=== PATIENT | female | born 1960 | race Asian ===

== ENCOUNTER 2018-04-14 07:33 | Day surgery (SDC) | payer MEDICARE, MEDICAID ==
[2018-04-14] VITALS (9 sets, daily range): BP systolic 121–156; BP diastolic 44–86
[~2018-04-14] VITALS: Ht 154.9 cm; Wt 65.2 kg
[2018-04-14] MEDS ORDERED: sod bicarbonate 150mEq in D5W 1,150 ML IV ONE (08:05)
[2018-04-14] MEDS ORDERED: diphenhydrAMINE 25mg capsule PO PRN (08:05)
[2018-04-14] MEDS ORDERED: normal saline 1000ml 1,000 ML IV SCH (08:05)
[2018-04-14] MEDS ORDERED: FURO80TA3 PO (08:11)
[2018-04-14] MEDS ORDERED: HYDR-4069 PO (08:11)
[2018-04-14] MEDS ORDERED: ASPI81TA52 PO (08:11)
[2018-04-14] MEDS ORDERED: CINA30TA PO (08:11)
[2018-04-14] MEDS ORDERED: SEVE800T8 PO (08:11)
[2018-04-14] MEDS ORDERED: FOLI0.8T7 PO (08:11)
[2018-04-14] MEDS ORDERED: FOLI1TAB16 PO (08:11)
[2018-04-14] MEDS ORDERED: LOSA25TA96 PO (08:11)
[2018-04-14] MEDS ORDERED: fentaNYL/PF 50MCG/1 ML 2ML syringe ONE (08:52)
[2018-04-14] MEDS ORDERED: LIDOcaine 1% (10mg/ml)w/preservative injection 20ml MDV ONE (08:52)
[2018-04-14] MEDS ORDERED: midazolam 2 mg/2 ml injection ONE (08:52)
[2018-04-14] MEDS ORDERED: iohexol 350MG/ML 100ml bottle IV ONE (08:52)
[2018-04-14] MEDS ORDERED: iohexol 350 MG/ML 50ML vial IV ONE (08:52)
[2018-04-14 09:37] LABS: BASOPHILS % (AUTO) 0.5 % (0-1); EOSINOPHILS # (AUTO) 0.2 X10'3 (0-0.9); EOSINOPHILS % (AUTO) 3.1 % (0-6); HEMOGLOBIN 10.1 g/dl (12.0-16.0); LYMPHOCYTES # (AUTO) 1.2 X10'3 (1.1-4.8); LYMPHOCYTES % (AUTO) 20.3 % (21-51); MEAN CORPUSCULAR HEMOGLOBIN 31.3 PG (27.0-31.0); MEAN CORPUSCULAR HGB CONC 33.7 % (33.0-36.5); MEAN CORPUSCULAR VOLUME 92.9 FL (78-98); MEAN PLATELET VOLUME 7.6 FL (7.4-10.4); MONOCYTES # (AUTO) 0.3 X10'3 (0-0.9); MONOCYTES % (AUTO) 5.6 % (2-12); NEUTROPHILS # (AUTO) 4.3 X10'3 (1.8-7.7); NEUTROPHILS % (AUTO) 70.5 % (42-75); PLATELET COUNT 113 X10'3 (140-440); RED BLOOD COUNT 3.22 X10'6 (4.20-5.60); RED CELL DISTRIBUTION WIDTH 16.7 % (11.5-14.5); WHITE BLOOD COUNT 6.1 X10'3 (4.5-11.0)
[2018-04-14 09:46] LABS: ALBUMIN 3.8 G/DL (3.4-5.0); ANION GAP 8 (8-16); BLOOD UREA NITROGEN 66 MG/DL (7-18); BUN/CREATININE RATIO 7.7 (6.6-38.0); CALCIUM 8.4 MG/DL (8.5-10.1); CHLORIDE 98 MMOL/L (99-107); CREATININE 8.61 MG/DL (0.40-0.90); GLUCOSE 98 MG/DL (70-104); MAGNESIUM 2.7 MG/DL (1.5-2.4); SODIUM 137 MMOL/L (135-145); TOTAL CARBON DIOXIDE 30.7 MMOL/L (24-32); eGFR 5 ML/MIN
[2018-04-14 09:52] LABS: POTASSIUM 6.6 MMOL/L (3.5-5.1)
[2018-04-14 09:53] LABS: INR 1.1 INR; PROTHROMBIN TIME 10.7 SECONDS (9.0-12.0)
[2018-04-14] MEDS ORDERED: dextrose 50%-water 50ml dispensing syringe IV ONE (10:32)
== END 2018-04-14 13:25 | disposition home or self-care (01) ==
LOC: SSTAY O 07:33
PROVIDERS: ATTEND Internal Medicine Cardiovascular Disease
DX: I25.10 Atherosclerotic heart disease of native coronary artery without angina pectoris (principal); I27.20 Pulmonary hypertension, unspecified; I12.0 Hypertensive chronic kidney disease with stage 5 chronic kidney disease or end stage renal disease; E11.22 Type 2 diabetes mellitus with diabetic chronic kidney disease; N18.6 End stage renal disease; G47.30 Sleep apnea, unspecified; Z99.2 Dependence on renal dialysis; I08.1 Rheumatic disorders of both mitral and tricuspid valves; I45.81 Long QT syndrome; G47.33 Obstructive sleep apnea (adult) (pediatric); Z79.82 Long term (current) use of aspirin; Z79.899 Other long term (current) drug therapy; Z98.890 Other specified postprocedural states
CPT/HCPCS: 36415; 80048; 82948; 83735; 85025; 85610; 93005; 93460; 99152; 99153; A6257; C1760; J1644; J2001; J2250; J3010; Q0163; Q9967; A4620; C1769; C1894

== ENCOUNTER 2018-04-28 07:30 | Day surgery (SDC) | payer MEDICARE, MEDICAID ==
[2018-04-28] VITALS (12 sets, daily range): BP systolic 119–192; BP diastolic 56–77
[~2018-04-28] VITALS: Ht 121.9 cm; Wt 63.6 kg
[~2018-04-28 07:30] MED LIST: ASPI81TA52 PO; CINA30TA PO; FOLI0.8T7 PO; FOLI1TAB16 PO; FURO80TA3 PO; HYDR-4069 PO; LOSA25TA96 PO; SEVE800T8 PO
[2018-04-28] MEDS ORDERED: normal saline 1000ml 1,000 ML IV SCH ×2 (08:00→08:05)
[2018-04-28] MEDS ORDERED: fentaNYL/PF 50MCG/1 ML 2ML syringe IV ONE (08:00)
[2018-04-28] MEDS ORDERED: MIDAZolam 5mg/ml 2ml vial IV ONE (08:00)
[2018-04-28 09:03] LABS: BASOPHILS % (AUTO) 0.5 % (0-1); EOSINOPHILS # (AUTO) 0.2 X10'3 (0-0.9); EOSINOPHILS % (AUTO) 4.4 % (0-6); HEMATOCRIT 35.5 % (35.0-45.0); LYMPHOCYTES # (AUTO) 1.2 X10'3 (1.1-4.8); LYMPHOCYTES % (AUTO) 26.8 % (21-51); MEAN CORPUSCULAR HEMOGLOBIN 31.8 PG (27.0-31.0); MEAN CORPUSCULAR HGB CONC 33.7 g/dL (33.0-36.5); MEAN CORPUSCULAR VOLUME 94.3 FL (78-98); MEAN PLATELET VOLUME 7.4 FL (7.4-10.4); MONOCYTES # (AUTO) 0.2 X10'3 (0-0.9); MONOCYTES % (AUTO) 4.9 % (2-12); NEUTROPHILS # (AUTO) 2.9 X10'3 (1.8-7.7); NEUTROPHILS % (AUTO) 63.4 % (42-75); PLATELET COUNT 166 X10'3 (140-440); RED BLOOD COUNT 3.77 X10'6 (4.20-5.60); RED CELL DISTRIBUTION WIDTH 17.6 % (11.5-14.5); WHITE BLOOD COUNT 4.6 X10'3 (4.5-11.0)
[2018-04-28 09:12] LABS: ALBUMIN 4.3 G/DL (3.4-5.0); ANION GAP 12 (8-16); BLOOD UREA NITROGEN 75 MG/DL (7-18); BUN/CREATININE RATIO 7.7 (6.6-38.0); CHLORIDE 93 MMOL/L (99-107); GLUCOSE 105 MG/DL (70-104); MAGNESIUM 2.8 MG/DL (1.5-2.4); SODIUM 137 MMOL/L (135-145); TOTAL CARBON DIOXIDE 31.8 MMOL/L (24-32); eGFR 4 ML/MIN
[2018-04-28 09:13] LABS: POTASSIUM 5.2 MMOL/L (3.5-5.1)
[2018-04-28 09:20] LABS: PROTHROMBIN TIME 10.6 SECONDS (9.0-12.0)
== END 2018-04-28 10:50 | disposition home or self-care (01) ==
LOC: SSTAY O 07:30 → EDSTATUS 09:00 → SSTAY O 10:50
PROVIDERS: ATTEND Internal Medicine Cardiovascular Disease
DX: I08.1 Rheumatic disorders of both mitral and tricuspid valves (principal); I12.0 Hypertensive chronic kidney disease with stage 5 chronic kidney disease or end stage renal disease; E11.22 Type 2 diabetes mellitus with diabetic chronic kidney disease; N18.6 End stage renal disease; G47.33 Obstructive sleep apnea (adult) (pediatric); I27.20 Pulmonary hypertension, unspecified; Z99.2 Dependence on renal dialysis; Z79.82 Long term (current) use of aspirin; Z79.899 Other long term (current) drug therapy; Z98.890 Other specified postprocedural states
CPT/HCPCS: 36415; 80048; 83735; 85025; 85610; 93312; 99152; 99153; J2250; J3010; J7030

== ENCOUNTER 2018-05-19 12:24 | Emergency (ER) | payer MEDICARE, MEDICAID ==
[~2018-05-19] VITALS: Ht 152.4 cm; Wt 63.0 kg
[2018-05-19] MEDS ORDERED: aspirin 81mg tab.chew PO ONE (14:10)
[2018-05-19 14:49] LABS: BASOPHILS % (AUTO) 0.6 % (0-1); EOSINOPHILS # (AUTO) 0.1 X10'3 (0-0.9); EOSINOPHILS % (AUTO) 3.1 % (0-6); HEMOGLOBIN 12.1 g/dl (12.0-16.0); LYMPHOCYTES # (AUTO) 1.3 X10'3 (1.1-4.8); LYMPHOCYTES % (AUTO) 27.6 % (21-51); MEAN CORPUSCULAR HEMOGLOBIN 31.8 PG (27.0-31.0); MEAN CORPUSCULAR HGB CONC 33.7 g/dL (33.0-36.5); MEAN CORPUSCULAR VOLUME 94.4 FL (78-98); MEAN PLATELET VOLUME 7.9 FL (7.4-10.4); MONOCYTES # (AUTO) 0.3 X10'3 (0-0.9); NEUTROPHILS # (AUTO) 2.8 X10'3 (1.8-7.7); NEUTROPHILS % (AUTO) 61.7 % (42-75); PLATELET COUNT 146 X10'3 (140-440); RED BLOOD COUNT 3.81 X10'6 (4.20-5.60); RED CELL DISTRIBUTION WIDTH 16.2 % (11.5-14.5); WHITE BLOOD COUNT 4.5 X10'3 (4.5-11.0)
[2018-05-19 15:02] LABS: ALANINE AMINOTRANSFERASE 11 U/L (12-78); ALBUMIN 4.3 G/DL (3.4-5.0); ALKALINE PHOSPHATASE 172 IU/L (46-116); ANION GAP 8 (8-16); ASPARTATE AMINO TRANSFERASE 19 U/L (10-37); BILIRUBIN,TOTAL 0.7 MG/DL (0.1-1.0); BLOOD UREA NITROGEN 25 MG/DL (7-18); BUN/CREATININE RATIO 5.7 (6.6-38.0); CALCIUM 8.9 MG/DL (8.5-10.1); CHLORIDE 98 MMOL/L (99-107); CREATININE 4.36 MG/DL (0.40-0.90); GLUCOSE 158 MG/DL (70-104); POTASSIUM 4.2 MMOL/L (3.5-5.1); SODIUM 140 MMOL/L (135-145); TOTAL CARBON DIOXIDE 34.5 MMOL/L (24-32); TOTAL PROTEIN 8.6 G/DL (6.4-8.2); eGFR 10 ML/MIN
[2018-05-19 15:10] LABS: MAGNESIUM 2.4 MG/DL (1.5-2.4)
[2018-05-19 17:47] VITALS: BP 182/68
== END 2018-05-19 18:01 | disposition home or self-care (01) ==
LOC: ER 12:25
DX: R00.1 Bradycardia, unspecified (principal); N18.9 Chronic kidney disease, unspecified; Z99.2 Dependence on renal dialysis; Z79.82 Long term (current) use of aspirin; Z79.899 Other long term (current) drug therapy
CPT/HCPCS: 36415; 71045; 80053; 82948; 83735; 83880; 84443; 84484; 85025; 93005; 99285

== ENCOUNTER 2019-01-03 06:54 | Day surgery (SDC) | payer MEDICARE, MEDICAID ==
[~2019-01-03] VITALS: Ht 154.9 cm; Wt 63.6 kg
[2019-01-03] VITALS (8 sets, daily range): BP systolic 135–156; BP diastolic 53–78
[2019-01-03] MEDS ORDERED: normal saline 1000ml 1,000 ML IV PRN (07:25)
[2019-01-03] MEDS ORDERED: LOSA25TA96 PO (07:36)
[2019-01-03 07:52] LABS: BASOPHILS % (AUTO) 0.7 % (0-1); EOSINOPHILS # (AUTO) 0.3 X10'3 (0-0.9); EOSINOPHILS % (AUTO) 5.3 % (0-6); HEMATOCRIT 29.5 % (35.0-45.0); HEMOGLOBIN 9.9 g/dl (12.0-16.0); LYMPHOCYTES # (AUTO) 1.1 X10'3 (1.1-4.8); LYMPHOCYTES % (AUTO) 21.2 % (21-51); MEAN CORPUSCULAR HEMOGLOBIN 32.3 PG (27.0-31.0); MEAN CORPUSCULAR HGB CONC 33.5 g/dL (33.0-36.5); MEAN CORPUSCULAR VOLUME 96.5 FL (78-98); MEAN PLATELET VOLUME 7.9 FL (7.4-10.4); MONOCYTES # (AUTO) 0.3 X10'3 (0-0.9); MONOCYTES % (AUTO) 6.4 % (2-12); NEUTROPHILS # (AUTO) 3.5 X10'3 (1.8-7.7); NEUTROPHILS % (AUTO) 66.4 % (42-75); PLATELET COUNT 132 X10'3 (140-440); RED BLOOD COUNT 3.06 X10'6 (4.20-5.60); RED CELL DISTRIBUTION WIDTH 15.8 % (11.5-14.5); WHITE BLOOD COUNT 5.2 X10'3 (4.5-11.0)
[2019-01-03 08:02] LABS: ALBUMIN 4.3 G/DL (3.4-5.0); ANION GAP 14 (8-16); BLOOD UREA NITROGEN 60 MG/DL (7-18); BUN/CREATININE RATIO 7.8 (6.6-38.0); CALCIUM 10.2 MG/DL (8.5-10.1); CHLORIDE 104 MMOL/L (99-107); CREATININE 7.72 MG/DL (0.40-0.90); GLUCOSE 93 MG/DL (70-104); POTASSIUM 5.3 MMOL/L (3.5-5.1); SODIUM 143 MMOL/L (135-145); TOTAL CARBON DIOXIDE 25.4 MMOL/L (24-32); eGFR 5 ML/MIN
[2019-01-03] MEDS ORDERED: midazolam 2 mg/2 ml injection IV PRN (08:15)
[2019-01-03] MEDS ORDERED: LIDOcaine 1%/PF 5ML 10 MG/ML VIAL SQ ONE (08:15)
[2019-01-03] MEDS ORDERED: fentaNYL/PF 50MCG/1 ML 2ML syringe IV PRN (08:15)
[2019-01-03] MEDS ORDERED: midazolam 2 mg/2 ml injection ONE ×2 (08:26→08:57)
[2019-01-03] MEDS ORDERED: heparin 1,000 UNITS/NS 500ml 500 ML ONE (08:26)
[2019-01-03] MEDS ORDERED: fentaNYL/PF 50MCG/1 ML 2ML syringe ONE ×2 (08:26→08:58)
[2019-01-03] MEDS ORDERED: LIDOcaine 1%/PF 5ML 10 MG/ML VIAL ONE (08:27)
[2019-01-03] MEDS ORDERED: iohexol 300mg/ml 100ml inj. ONE ×2 (08:27→08:41)
== END 2019-01-03 11:35 | disposition home or self-care (01) ==
LOC: SSTAY O 06:54
PROVIDERS: ATTEND Radiology Diagnostic Radiology
DX: T82.858A Stenosis of other vascular prosthetic devices, implants and grafts, initial encounter (principal); E11.22 Type 2 diabetes mellitus with diabetic chronic kidney disease; I12.0 Hypertensive chronic kidney disease with stage 5 chronic kidney disease or end stage renal disease; N18.6 End stage renal disease; Z79.899 Other long term (current) drug therapy; Y83.2 Surgical operation with anastomosis, bypass or graft as the cause of abnormal reaction of the patient, or of later complication, without mention of misadventure at the time of the procedure; Y82.8 Other medical devices associated with adverse incidents
CPT/HCPCS: 36415; 36902; 80048; 82948; 85025; 85610; 99152; 99153; C1725; C1769; C1894; J1644; J2250; J3010; J7030; Q9967

== ENCOUNTER 2020-07-30 09:47 | Emergency (ER) | payer MEDICARE, MEDICAID ==
[~2020-07-30] VITALS: Ht 152.4 cm; Wt 70.5 kg
[~2020-07-30 09:47] MED LIST changes: -ASPI81TA52 PO; -FOLI0.8T7 PO; -FURO80TA3 PO
--- NOTE | 2020-07-30 09:53 | NUR ---
Compression allied to left upper fistula; in place @ assumption of care upon return from q15m break. No active bleeding @ fistula sight. Pt denies pain; no apparent distress @ this time.
[2020-07-30 12:19] VITALS: BP 181/68
== END 2020-07-30 12:21 | disposition home or self-care (01) ==
LOC: ER 09:47
DX: T82.9XXA Unspecified complication of cardiac and vascular prosthetic device, implant and graft, initial encounter (principal); M25.042 Hemarthrosis, left hand; L98.8 Other specified disorders of the skin and subcutaneous tissue; I12.9 Hypertensive chronic kidney disease with stage 1 through stage 4 chronic kidney disease, or unspecified chronic kidney disease; N18.9 Chronic kidney disease, unspecified; Z86.2 Personal history of diseases of the blood and blood-forming organs and certain disorders involving the immune mechanism; Z79.899 Other long term (current) drug therapy; X58.XXXA Exposure to other specified factors, initial encounter; Y93.89 Activity, other specified; Y92.89 Other specified places as the place of occurrence of the external cause; Y99.8 Other external cause status
CPT/HCPCS: 99283

== ENCOUNTER 2021-02-15 10:12 | Emergency (ER) | payer MEDICARE, MEDICAID ==
[~2021-02-15] VITALS: Ht 152.4 cm; Wt 63.6 kg
--- NOTE | 2021-02-15 10:40 | NUR ---
DR CONNOR AT BEDSIDE, REMOVED CLAMP. NO BLEEDING NOTED, THRILL PRESENT. WILL CONTINUE TO MONITOR.
--- NOTE | 2021-02-15 11:05 | NUR ---
NO BLEEDING FROM FISTULA.
[2021-02-15 11:13] VITALS: BP 171/69
--- NOTE | 2021-02-15 11:14 | NUR ---
PT CALLED [facility] FOR RIDE. WILL BE HERE IN 45-60 MINUTES
== END 2021-02-15 12:08 | disposition home or self-care (01) ==
LOC: ER 10:12
DX: T82.9XXA Unspecified complication of cardiac and vascular prosthetic device, implant and graft, initial encounter (principal); R58 Hemorrhage, not elsewhere classified; I12.0 Hypertensive chronic kidney disease with stage 5 chronic kidney disease or end stage renal disease; N18.6 End stage renal disease; Z86.2 Personal history of diseases of the blood and blood-forming organs and certain disorders involving the immune mechanism; Z79.899 Other long term (current) drug therapy; X58.XXXA Exposure to other specified factors, initial encounter; Y93.89 Activity, other specified; Y92.89 Other specified places as the place of occurrence of the external cause; Y99.8 Other external cause status
CPT/HCPCS: 99283